=== PATIENT | female | born 1955 | race Caucasian/White ===

== ENCOUNTER 2016-10-27 22:50 | Emergency (ER) | payer MEDICAID ==
[~2016-10-27] VITALS: Ht 157.5 cm; Wt 55.8 kg
--- NOTE | ~2016-10-27 | CR117 ---
[facility] A Service [facility] RADIOLOGY TEXT RESULTS PATIENT: TRACEY FOSS LOCATION: SED : 57 UNIT #: [id number] AGE: [address]: DENISSE TRACEY SEX: F ORDER DR: [id number] [place] [id number] E MR#: [id number] Acc #: [id number] NAME: TRACEY FOSS : 1955 SEX: F STUDY DATE/TIME: 10/27/2016 23:40 UNIT: SED ROOM: STUDY DESCRIPTION: CR Finger 2 View Thumb Rt Attending Physician: Denisse Tracey Aprn Ordering Physician: Denisse Tracey Aprn MEDICAL IMAGING REPORT This report is preliminary unless electronic signature is present. EXAM Right thumb, 10/27/2016. HISTORY 61-year-old female in the ED with soft tissue laceration of the right thumb earlier today. Cut thumb on unknown object in garbage can. TECHNIQUE Two-view right thumb series. FINDINGS No visible radiopaque soft tissue foreign body. No fracture or other acute osseous abnormality. Advanced degenerative arthropathy at the first CMC joint with more mild degenerative changes at the first MCP and IP joints. FINDINGS 1. No acute osseous abnormality. 2. No visible soft tissue foreign body. 3. Degenerative arthropathy. Dictated by... Kane Acevedo M.D. THIS IS AN ELECTRONICALLY VERIFIED REPORT Kane Acevedo M.D. at 10/28/2016 5:07 PM LIZBETH/essie TD: 10/28/2016 09:20 JOB #: [id number] [facility] A Service [facility] RADIOLOGY TEXT RESULTS PATIENT: TRACEY FOSS LOCATION: SED : 57 UNIT #: [id number] AGE: [address]: DENISSE TRACEY SEX: F ORDER DR: MEDICAL IMAGING REPORT Page 1 of 1
[~2016-10-27 22:50] MED LIST: ALPRAZOLAM PO; IBUPROFEN800 MG; PHENERGAN25 MG PO
[2016-10-27] MEDS ORDERED: XANAX0.5 MG PO (23:17)
[2016-10-27] MEDS ORDERED: LORTAB 10-3251 EACH PO (23:17)
[2016-10-27] MEDS ORDERED: BUSPAR PO (23:17)
[2016-10-27] MEDS ORDERED: TREXIMET 10-601 EACH PO (23:18)
== END 2016-10-28 01:46 | disposition home or self-care (01) ==
LOC: SED 22:50
DX: S61.011A Laceration without foreign body of right thumb without damage to nail, initial encounter (principal); I10 Essential (primary) hypertension; J45.909 Unspecified asthma, uncomplicated; F17.200 Nicotine dependence, unspecified, uncomplicated; Z79.899 Other long term (current) drug therapy; Z88.2 Allergy status to sulfonamides; Z91.041 Radiographic dye allergy status; W45.8XXA Other foreign body or object entering through skin, initial encounter; Y92.89 Other specified places as the place of occurrence of the external cause
CPT/HCPCS: 12001; 73140; 99283